=== PATIENT | male | born 1980 | race Caucasian/White ===

== ENCOUNTER 2019-05-03 23:09 | Emergency (ER) | payer BC ==
[2019-05-03 23:13] VITALS: BP 150/102
== END 2019-05-04 01:29 | disposition left against medical advice (07) ==
LOC: ED 23:09
DX: S99.911A Unspecified injury of right ankle, initial encounter (principal); X58.XXXA Exposure to other specified factors, initial encounter; Y92.9 Unspecified place or not applicable; Z53.21 Procedure and treatment not carried out due to patient leaving prior to being seen by health care provider

== ENCOUNTER 2019-05-04 09:00 | Emergency (ER) | payer BC ==
[2019-05-04 09:13] VITALS: BP 124/74
--- NOTE | 2019-05-04 09:28 | UC ---
Lower Extremity/Ankle HPI - HPI Summary HPI Summary: The patient is a 39-year-old male who was dismounting a 4 [employer] yesterday when he got his rght leg stuck between the foot peg and the vehicle. He had to twist his ankle to get his leg unstuck. He complains of lower tib-fib pain in the distal third of the lower leg. He is able to bear weight with a limp. He was seen in the ER last night where he had an ankle x-ray. He left before being seen. He took ibuprofen which seemed to decrease his pain. He denies any past history of right foot or ankle injury. - History of Current Complaint Chief Complaint: UCLowerExtremity Stated Complaint: ANKLE INJURY Time Seen by Provider: 05/04/19 09:10 Hx Obtained From: Patient Onset/Duration: Sudden Onset Severity Initially: Severe Severity Currently: Moderate Pain Intensity: 7 Pain Scale Used: 0-10 Numeric Aggravating Factor(s): Standing, Ambulation Alleviating Factor(s): Rest Able to Bear Weight: Yes Feet (Multiple View): 1 - contuison - Allergies/Home Medications Allergies/Adverse Reactions: Allergies Allergy/AdvReac Type Severity Reaction Status Date / Time cefaclor Allergy Unknown Verified 05/04/19 09:14 Reaction Details Home Medications: Home Medications Levothyroxine TAB* [Synthroid 25 MCG TAB*] 50 mcg PO DAILY 05/04/19 [History Confirmed 05/04/19] PMH/Surg Hx/FS Hx/Imm Hx Previously Healthy: Yes - Surgical History Surgical History: Yes Surgery Procedure, Year, and Place: Nose 5 yrs ago - Family History Known Family History: Negative: Cardiac Disease, Hypertension, Diabetes - Social History Alcohol Use: Weekly Substance Use Type: None Smoking Status (MU): Former Smoker Have You Smoked in the Last Year: No - Immunization History Most Recent Tetanus Shot: unknown Review of Systems All Other Systems Reviewed And Are Negative: Yes Constitutional: Positive: Negative Skin: Positive: Negative Eyes: Positive: Negative ENT: Positive: Negative Respiratory: Positive: Negative Cardiovascular: Positive: Negative Gastrointestinal: Positive: Negative Genitourinary: Positive: Negative Motor: Positive: Negative Neurovascular: Positive: Negative Musculoskeletal: Positive: Arthralgia, Edema Neurological: Positive: Negative Psychological: Positive: Negative Physical Exam Triage Information Reviewed: Yes Appearance: Well-Appearing, No Pain Distress, Well-Nourished Vital Signs: Initial Vital Signs Temp 98.0 F 05/04/19 09:07 Pulse 83 05/04/19 09:07 Resp 20 05/04/19 09:07 BP 124/74 05/04/19 09:07 Pulse Ox 100 05/04/19 09:07 Vital Signs Reviewed: Yes Eyes: Positive: Conjunctiva Clear ENT: Positive: Hearing grossly normal. Negative: Nasal congestion, Nasal drainage, Trismus, Muffled voice, Hoarse voice Dental Exam: Normal Neck: Positive: Supple Respiratory: Positive: Lungs clear, Normal breath sounds, No respiratory distress, No accessory muscle use Cardiovascular: Positive: RRR, No Murmur Musculoskeletal: Positive: Other: - see image, achilles intact, pain with inversion of ankle Neurological: Positive: Alert Psychological Exam: Normal Skin Exam: Normal Diagnostics - Radiology No standard instances Radiology Interpretation Completed By: Radiologist Summary of Radiographic Findings: neg- (from ER) Lower Extremity Course/Dx - Differential Dx/Diagnosis Provider Diagnosis: High ankle sprain of right lower extremity, Contusion of right lower leg Discharge - Sign-Out/Discharge Documenting (check all that apply): Patient Departure All imaging exams completed and their final reports reviewed: Yes - reviewed ankle XR from ER 05/03 - Discharge Plan Condition: Stable Disposition: HOME Patient Education Materials: Contusion in Adults (ED), Ankle Sprain (ED) Referrals: [facility] [Outside] - 1 Week Additional Instructions: ibuprofen ice are 3-4 x day for 10-15 minutes CAM boot elevate recheck for worsening symptoms (or new symptoms) - Billing Disposition and Condition Condition: STABLE Disposition: Home
== END 2019-05-04 09:50 | disposition home or self-care (01) ==
LOC: UCEAST 09:00
DX: S93.401A Sprain of unspecified ligament of right ankle, initial encounter (principal); S80.11XA Contusion of right lower leg, initial encounter; V86.49XA Person injured while boarding or alighting from other special all-terrain or other off-road motor vehicle, initial encounter; Y93.89 Activity, other specified; Y92.9 Unspecified place or not applicable; Y99.8 Other external cause status
CPT/HCPCS: 99213; G0463

== ENCOUNTER 2020-01-20 07:22 | Emergency (ER) | payer BC ==
[2020-01-20 07:34] VITALS: BP 114/68
[2020-01-20 07:54] LABS: Influenza A Molecular Negative (Negative); Influenza B Molecular Negative (Negative)
--- NOTE | 2020-01-20 08:11 | UC ---
FLU HPI - HPI Summary HPI Summary: ONSET LAST NIGHT OF COUGH, HEADACHE, BODY ACHES, FATIGUE AND FEVER 103.5 THIS MORNING. 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 NO FLU SHOT THIS SEASON. - History of Current Complaint Chief Complaint: UCGeneralIllness Stated Complaint: FLU SYMPTOMS Time Seen by Provider: 01/20/20 07:37 Hx Obtained From: Patient Onset/Duration: Sudden Onset, Lasting Hours, Still Present Severity Currently: Moderate Severity Initially: Moderate Pain Intensity: 4 Pain Scale Used: 0-10 Numeric Associated Signs & Symptoms: Positive: Fever, Myalgia, Cough, Nasal Congestion, Headache - Allergy/Home Medications Allergies/Adverse Reactions: Allergies Allergy/AdvReac Type Severity Reaction Status Date / Time cefaclor Allergy Unknown Verified 01/20/20 07:28 Reaction Details Home Medications: Home Medications Ibuprofen TAB* [Motrin TAB* 600 MG] 600 mg PO Q6H PRN 07/21/16 [History Confirmed 05/04/19] Levothyroxine TAB* [Synthroid 25 MCG TAB*] 50 mcg PO DAILY 05/04/19 [History Confirmed 05/04/19] PMH/Surg Hx/FS Hx/Imm Hx Endocrine History: Hypothyroidism - Surgical History Surgical History: Yes Surgery Procedure, Year, and Place: Nose 5 yrs ago - Family History Known Family History: Negative: Cardiac Disease, Hypertension, Diabetes - Social History Alcohol Use: Weekly Substance Use Type: None Smoking Status (MU): Former Smoker Have You Smoked in the Last Year: No - Immunization History Most Recent Tetanus Shot: unknown Review of Systems All Other Systems Reviewed And Are Negative: Yes Constitutional: Positive: Fever, Chills, Fatigue ENT: Positive: Nasal Discharge Respiratory: Positive: Cough Cardiovascular: Positive: Negative Gastrointestinal: Positive: Negative Musculoskeletal: Positive: Myalgia Neurological/Mental Status: Positive: Headache Physical Exam Triage Information Reviewed: Yes Appearance: Well-Appearing, No Pain Distress, Well-Nourished Vital Signs: Initial Vital Signs Temp 97.8 F 01/20/20 07:29 Pulse 68 01/20/20 07:29 Resp 18 01/20/20 07:29 BP 114/68 01/20/20 07:29 Pulse Ox 100 01/20/20 07:29 Laboratory Tests 01/20/20 07:42 Influenza A (Rapid) Negative Influenza B (Rapid) Negative Vital Signs Reviewed: Yes Eyes: Positive: Conjunctiva Clear ENT: Positive: Hearing grossly normal, Pharynx normal, TMs normal Neck: Positive: Supple, Nontender, No Lymphadenopathy Respiratory Exam: Normal Cardiovascular Exam: Normal Abdomen Description: Positive: Soft Musculoskeletal: Positive: No Edema Neurological: Positive: Alert Psychological: Positive: Age Appropriate Behavior Skin: Negative: Rashes Flu Course/Dx - Course Course Of Treatment: FLU SWAB NEGATIVE. PATIENT SYMPTOMS ARE STILL LIKELY VIRALLY MEDIATED AND SHOULD RESOLVE ON THEIR OWN WITH TIME. REST, HYDRATE, OTC MEDS NEEDED. ADVISED TO SEEK REEVALUATION IF HIS FEVER IS NOT IMPROVING OVER THE NEXT FEW DAYS. - Differential Dx/Diagnosis Provider Diagnosis: Flu-like symptoms Discharge ED - Sign-Out/Discharge Documenting (check all that apply): Patient Departure All imaging exams completed and their final reports reviewed: No Studies - Discharge Plan Condition: Stable Disposition: HOME Patient Education Materials: Viral Syndrome (ED) Referrals: Edgar Harden MD [Primary Care Provider] - If Needed Additional Instructions: FLU SWAB NEGATIVE. YOUR SYMPTOMS ARE STILL LIKELY VIRALLY MEDIATED AND SHOULD RESOLVE ON THEIR OWN WITH TIME. NO INDICATION FOR ANTIBIOTICS AT PRESENT. REST, HYDRATE, OTC MEDS NEEDED. SEEK FOLLOW-UP IF YOU ARE NOT IMPROVING OVER THE NEXT FEW DAYS. - Billing Disposition and Condition Condition: STABLE Disposition: Home
== END 2020-01-20 08:12 | disposition home or self-care (01) ==
LOC: UCEAST 07:22
DX: R09.89 Other specified symptoms and signs involving the circulatory and respiratory systems (principal); R50.9 Fever, unspecified; R53.83 Other fatigue; R05 Cough; M79.10 Myalgia, unspecified site; R51 Headache; E03.9 Hypothyroidism, unspecified; Z88.1 Allergy status to other antibiotic agents; Z87.891 Personal history of nicotine dependence; Z79.890 Hormone replacement therapy
CPT/HCPCS: 99211; G0463